=== PATIENT | female | born 1940 | race Caucasian/White ===

== ENCOUNTER → 2019-01-09 | Day surgery (SDC) | payer MEDICARE ==
[~2019-01-09] MED LIST: AMIODARONE HCL200 MG PO; ASPIR 8181 MG PO; AVAPRO150 MG PO; BENADRYL25 M1 PO; CLARITIN-D 241 EACH PO; CLOPIDOGREL75 MG PO; COQ-10100 MG PO; CYMBALTA20 MG PO; CYMBALTA60 MG PO; DILTIAZEM HCL120 MG PO; FENOFIBRATE145 MG PO; FENTANYL CITRATE/PF 100MCG/2 ML INJ ONE; FUROSEMIDE40 MG PO; GLIMEPIRIDE2 MG PO; GLUCOVANCE 5-51 EACH PO; HUMALOG100 UNIT/1 SQ; HYDRALAZINE HCL 20 MG/ML VIAL ONE; HYDROCHLOROTHIA25 MG PO; INSULIN REGULAR, HUMAN 100 UNIT/1 ML 3ML VIAL ONE; INVOCANA PO; LANTUS 3ML100 UNITS/ SQ; LIPITOR40 MG PO; LISINOPRIL5 MG PO; METFORMIN HCL500 MG PO; MIDAZOLAM HCL 2 MG/2 ML VIAL ONE; MULTIVITAMINS1 EAC7 PO; OR PHACO EYE KIT ONE; PLAVIX75 MG PO; POTASSIUM CHLO20 ME1 PO; PREOP PHACO EYE KIT ONE; PREVACID15 M1 PO; ULTRAM50 MG PO; jardiance PO
[2019-01-09 12:45] VITALS: BP 139/90
== END | disposition home or self-care (01) ==
LOC: OR 09:07
PROVIDERS: ATTEND Ophthalmology
DX: H25.11 Age-related nuclear cataract, right eye (principal); I25.810 Atherosclerosis of coronary artery bypass graft(s) without angina pectoris; E78.2 Mixed hyperlipidemia; J44.9 Chronic obstructive pulmonary disease, unspecified; I25.2 Old myocardial infarction; I11.0 Hypertensive heart disease with heart failure; I50.9 Heart failure, unspecified; E11.9 Type 2 diabetes mellitus without complications; K21.9 Gastro-esophageal reflux disease without esophagitis; R06.01 Orthopnea; I48.91 Unspecified atrial fibrillation; D49.519 Neoplasm of unspecified behavior of unspecified kidney; E66.9 Obesity, unspecified; Z88.8 Allergy status to other drugs, medicaments and biological substances; Z79.02 Long term (current) use of antithrombotics/antiplatelets; Z79.82 Long term (current) use of aspirin; Z79.84 Long term (current) use of oral hypoglycemic drugs; Z79.4 Long term (current) use of insulin; Z68.32 Body mass index [BMI] 32.0-32.9, adult; Z95.1 Presence of aortocoronary bypass graft; Z95.5 Presence of coronary angioplasty implant and graft; Z95.810 Presence of automatic (implantable) cardiac defibrillator; Z87.891 Personal history of nicotine dependence
CPT/HCPCS: 36415; 66984; 82948; J0360; J2250; J3010; V2632; J1817

== ENCOUNTER 2019-02-10 13:06 | Inpatient (IN) | payer MEDICARE ==
[~2019-02-10] VITALS: Ht 172.7 cm; Wt 95.3 kg
[~2019-02-10 13:06] MED LIST changes: -FENTANYL CITRATE/PF 100MCG/2 ML INJ ONE; -HYDRALAZINE HCL 20 MG/ML VIAL ONE; -INSULIN REGULAR, HUMAN 100 UNIT/1 ML 3ML VIAL ONE; -MIDAZOLAM HCL 2 MG/2 ML VIAL ONE; -OR PHACO EYE KIT ONE; -PREOP PHACO EYE KIT ONE
--- OUTSIDE RECORDS SUMMARY | 2019-02-10 13:09 | XMS REPORT ---
Author Author [facility] Address Unknown Phone Unavailable Care Team Providers Care Custodial Foreman Name Role Phone Unavailable Unavailable Payers Payer Name Policy Type Policy Number Effective Date Expiration Date Problems This patient has no known problems. Allergies, Adverse Reactions, Alerts Allergy Name Allergy Type Status Severity Reaction(s) Onset Date Inactive Date Treating Clinician Comments Beta-Blockers (Beta-Adrenergic Bloc DA Active SV 2015-09-12 00:00:00 empagliflozin DA Active U 2015-09-12 00:00:00 Medications This patient has no known medications. Results Test Description Test Time Test Comments Text Results Atomic Results Result Comments - CT ABD PELVIS W/O CONT 2019-02-09 08:11:00 Name: KYRIE MAURICIO [facility] : 1940 Age/S: 78 / F [address] [facility] Unit #: [id number] Loc: [place] [address] Phys: Silvana Gutierrez MD Acct: [id number] Dis Date: Status: REG ER PHONE #: [phone] Exam Date: 02/09/2019 0807 FAX #: [phone] Reason: RLQ abd pain EXAMS: CPT CODE: [id number] CT ABD PELVIS W/O CONT 74964 HISTORY: RLQ abd pain TECHNIQUE: 5mm axial CT images were obtained through the abdomen and pelvis without contrast. Sagittal and coronal reformatted images were generated. Automated exposure control for dose reduction. COMPARISON: None FINDINGS: Right lower lobe calcified granuloma. Cardiomegaly. Cardiac pacemaker/ICD. Coronary artery calcification. Cholecystectomy. Hepatomegaly. Atrophic pancreas. Calcified granulomas of the spleen. Normal adrenal glands. Obstructing 6 mm right ureteral calculus at the L4-L5 level. Mild right hydronephrosis and perinephric stranding. 3.4 cm masslike density of the right interpolar renal cortex. Nonenhanced left kidney and collecting system unremarkable. Limited evaluation of the GI tract without oral contrast. Stomach and small bowel are unremarkable. Moderate distal colon diverticulosis. No free air or free fluid. No lymphadenopathy. Aortoiliac atherosclerotic vascular calcification without aneurysm. Partially collapsed urinary bladder is grossly unremarkable. Hysterectomy. No pelvic free fluid. Small fat-containing ventral hernias. Degenerative changes of the spine, sacral iliac joints, and hips. IMPRESSION: Obstructing 6 mm right ureteral calculus at the L4-L5 level. Mild right hydronephrosis and enrique nephric stranding. 3.4 cm masslike density of the right interpolar renal cortex. Recommend contrast enhanced renal MRI. PAGE 1 Signed Report (CONTINUED) Name: KYRIE MAURICIO [facility] : 1940 Age/S: 78 / F [address] [facility] Unit #: [id number] Loc: [facility] [address] Phys: Silvana Gutierrez MD Acct: [id number] Dis Date: Status: REG ER PHONE #: [phone] Exam Date: 02/09/2019 0807 FAX #: [phone] Reason: RLQ abd pain EXAMS: CPT CODE: [id number] CT ABD PELVIS W/O CONT 95081 <Continued> at 0811 Reported and signed by: Anahi Barlow D.O. CC: Silvana Gutierrez MD; Gurjit Dietz Technologist:FREDY OWENS RT(R),CT CTDI: DLP: Trnscb Date/Time: 02/09/2019 (08) [email or web address] Orig Print D/T: S: 02/09/2019 (0815) PAGE 2 Signed Report COMPREHENSIVE METABOLIC PANEL 2019-02-09 07:54:00 SODIUM (test code=NA) 136 mmol/L 136-145 POTASSIUM (test code=K) 4.6 mmol/L 3.5-5.1 CHLORIDE (test code=CL) 95 mmol/L 101-109 CARBON DIOXIDE (test code=CO2) 25.2 mmol/L 21-32 ANION GAP (test code=GAP) 20 mmol/L 10-20 GLUCOSE (test code=GLU) 336 mg/dL 74-106 BLOOD UREA NITROGEN (test code=BUN) 30 mg/dL 3-21 CREATININE (test code=CREAT) 2.37 mg/dL 0.55-1.3 BUN/CREATININE RATIO (test code=BUN/CREA) 12.7 10-20 TOTAL PROTEIN (test code=PROT) 7.9 g/dL 6.5-8.4 ALBUMIN (test code=ALB) 3.8 g/dL 3.4-4.8 GLOBULIN (test code=GLOB) 4.1 G/DL 1-10 ALBUMIN/GLOBULIN RATIO (test code=A/G) 0.93 RATIO 0.75-1.50 CALCIUM (test code=CA) 9.1 mg/dL 8.4-10.2 BILIRUBIN TOTAL (test code=BILT) 0.70 mg/dL 0.0-1.0 SGOT/AST (test code=AST) 21 U/L 6-32 SGPT/ALT (test code=ALT) 20 U/L 12-78 Note: Change in REFERENCE RANGE due to new reagent method. ALKALINE PHOSPHATASE TOTAL (test code=ALKP) 72 U/L 38-126 [id number] 07:54:00* Test Item Value Reference Range Comments LIPASE (test code=LIP) 171 U/L 128-270 COMPREHENSIVE METABOLIC [id number] 07:50:00* Test Item Value Reference Range Comments SODIUM (test code=NA) 136 mmol/L 136-145 POTASSIUM (test code=K) 4.6 mmol/L 3.5-5.1 CHLORIDE (test code=CL) 95 mmol/L 101-109 CARBON DIOXIDE (test code=CO2) 25.2 mmol/L 21-32 ANION GAP (test code=GAP) 20 mmol/L 10-20 GLUCOSE (test code=GLU) 336 mg/dL 74-106 BLOOD UREA NITROGEN (test code=BUN) 30 mg/dL 3-21 CREATININE (test code=CREAT) 2.37 mg/dL 0.55-1.3 BUN/CREATININE RATIO (test code=BUN/CREA) 12.7 10-20 TOTAL PROTEIN (test code=PROT) gram/dL 6.4-8.2 ALBUMIN (test code=ALB) g/dL 3.4-5.0 GLOBULIN (test code=GLOB) g/dL 2.7-4.2 ALBUMIN/GLOBULIN RATIO (test code=A/G) 0.75-1.50 CALCIUM (test code=CA) 9.1 mg/dL 8.4-10.2 BILIRUBIN TOTAL (test code=BILT) mg/dL 0.2-1.2 SGOT/AST (test code=AST) IUnit/L 15-37 SGPT/ALT (test code=ALT) U/L 10-69 ALKALINE PHOSPHATASE TOTAL (test code=ALKP) IUnit/L 45-117 [id number] 07:50:00* Test Item Value Reference Range Comments LIPASE (test code=LIP) Unit/L 144-286 URINALYSIS [id number] 07:45:00* Test Item Value Reference Range Comments UA COLOR (test code=COLU) YELLOW YELLOW UA APPEARANCE (test code=APPU) CLEAR CLEAR UA GLUCOSE DIPSTICK (test code=DGLUU) 1000 (3+) mg/dL NEGATIVE UA BILIRUBIN DIPSTICK (test code=BILU) NEGATIVE mg/dL NEGATIVE UA KETONE DIPSTICK (test code=KETU) 5 (Trace) mg/dL NEGATIVE UA SPECIFIC GRAVITY (test code=SGU) 1.015 1.001-1.035 UA BLOOD DIPSTICK (test code=ALBA) 50 (2+) George/uL NEGATIVE UA PH DIPSTICK (test code=MISAEL) 5.0 5.0-8.0 UA PROTEIN DIPSTICK (test code=PROU) 100 (2+) mg/dL Neg-15 UA UROBILINIOGEN DIPSTICK (test code=URO) norm mg/dL 0.0-0.2 UA NITRITE DIPSTICK (test code=KALA) NEGATIVE NEGATIVE UA LEUKOCYTE ESTERASE DIPSTICK (test code=LEUU) 25 Anne/uL (Trace) uL NEGATIVE UA WBC (test code=WBCU) 0-5 per HPF 0-5 UA RBC (test code=RBCU) 6-10 per HPF 0-5 UA EPITHELIAL CELLS (test code=EPIU) Few (2-5/hpf) per HPF Few UA BACTERIA (test code=BACU) FEW per HPF NONE Urine Source? Clean CatchCBC W/AUTO [id number] 07:38:00* Test Item Value Reference Range Comments WHITE BLOOD CELL (test code=WBC) 19.6 K/mm3 4.5-12.5 RED BLOOD CELL (test code=RBC) 5.64 mill/mm3 3.7-5.2 HEMOGLOBIN (test code=HGB) 12.7 gram/dL 11.5-15.5 HEMATOCRIT (test code=HCT) 41.8 % 36.0-46.0 MEAN CELL VOLUME (test code=MCV) 74.1 fL 80-98 MEAN CELL HGB (test code=MCH) 22.5 picogram 27.0-33.0 MEAN CELL HGB CONCETRATION (test code=MCHC) 30.4 gram/dL 33.0-36.0 RED CELL DISTRIBUTION WIDTH (test code=RDW) 15.9 % 11.6-16.2 RED CELL DISTRIBUTION WIDTH SD (test code=RDW-SD) 42.8 fL 37.0-51.0 PLATELET COUNT (test code=PLT) 555 K/mm3 150-450 MEAN PLATELET VOLUME (test code=MPV) 10.7 fL 6.7-11.0 NEUTROPHIL % (test code=NT%) 85.8 % 39.0-69.0 LYMPHOCYTE % (test code=LY%) 10.4 % 25.0-55.0 MONOCYTE % (test code=MO%) 3.3 % 0.0-10.0 EOSINOPHIL % (test code=EO%) 0.0 % 0.0-5.0 BASOPHIL % (test code=BA%) 0.2 % 0.0-1.0 NEUTROPHIL # (test code=NT#) 16.85 K/mm3 1.8-7.7 LYMPHOCYTE # (test code=LY#) 2.05 K/mm3 1.0-5.0 MONOCYTE # (test code=MO#) 0.65 K/mm3 0-0.8 EOSINOPHIL # (test code=EO#) 0.00 K/mm3 0.0-0.5 BASOPHIL # (test code=BA#) 0.04 K/mm3 0.0-0.2 MANUAL DIFF REQUIRED (test code=MDIFF) NO
--- NOTE | 2019-02-10 13:49 | NUR ---
PATIENT TO ROOM 11
[2019-02-10 13:50] LABS: BASOPHILS # (AUTO) 0.1 (0.0-0.1); BASOPHILS % 0.3 % (0.0-1.0); EOSINOPHILS % 0.2 % (0.0-6.0); HEMATOCRIT 37.6 % (34.2-44.1); HEMOGLOBIN 11.2 g/dL (12.0-16.0); LYMPHOCYTES # (AUTO) 1.7 (1.0-3.2); LYMPHOCYTES % 10.7 % (18.0-39.1); MEAN CORPUSCULAR HEMOGLOBIN 22.4 pg (28-32); MEAN CORPUSCULAR HGB CONC 29.8 g/dL (31-35); MEAN CORPUSCULAR VOLUME 75.4 fL (81-99); MONOCYTES # (AUTO) 0.9 (0.2-0.8); MONOCYTES % 5.2 % (4.4-11.3); NEUTROPHILS # (AUTO) 13.5 (2.1-6.9); NEUTROPHILS % 83.1 % (38.7-80.0); PLATELET COUNT 434 x10e3/uL (140-360); RED BLOOD COUNT 4.99 x10e6/uL (3.6-5.1); RED CELL DISTRIBUTION WIDTH 16.4 % (11.7-14.4)
[2019-02-10 13:51] LABS: BILIRUBIN,URINE NEGATIVE (NEGATIVE); CLARITY,URINE CLEAR (CLEAR); COLOR,URINE YELLOW (YELLOW); KETONES,URINE NEGATIVE (NEGATIVE); LEUKOCYTE ESTERASE ,URINE NEGATIVE (NEGATIVE); NITRITE,URINE NEGATIVE (NEGATIVE); PROTEIN,URINE DIPSTICK TRACE (NEGATIVE); URINE UROBILINOGEN 0.2 mg/dL (0.2 - 1)
[2019-02-10 14:01] LABS: BACTERIA,URINE FEW /HPF; EPITHELIAL CELLS,URINE FEW /LPF; RBC,URINE 0-5 /HPF (0-5); WBC,URINE (MAN) 0-5 /HPF (0-5)
[2019-02-10] MEDS: CEFTRIAXONE SOD 1 GM/NS 50 ML 50 ML IV SCH (14:07)
[2019-02-10 14:13] LABS: ALBUMIN 3.8 g/dL (3.5-5.0); ANION GAP 19.6 mmol/L (8-16); CALCIUM 9.7 mg/dL (8.4-10.2); CREATININE, SERUM 2.6 mg/dL (0.57-1.11); POTASSIUM 4.6 mmol/L (3.5-5.1)
[2019-02-10] MEDS ORDERED: CEFTRIAXONE SOD 1 GM/NS 50 ML 50 ML IV SCH (14:30)
[2019-02-10] MEDS ORDERED: PROPOFOL IV EMULSION 10 MG/ML 20 ML VIAL ONE (14:36)
[2019-02-10] MEDS ORDERED: EPHEDRINE SULFATE INJ 50 MG/10 ML SYR ONE (14:36)
[2019-02-10] MEDS ORDERED: DEXAMETHASONE SOD PHOS INJ 4 MG/ML VIAL ONE (14:36)
[2019-02-10] MEDS ORDERED: LIDOCAINE HCL 2% LOCAL INJ 5 ML SDV VIAL INJ ONE (14:36)
--- NOTE | 2019-02-10 14:50 | Diagnostic Imaging Report ---
CT Abdomen and Pelvis without contrast INDICATION: ^obstructing stone TECHNIQUE: Thin collimation axial images obtained from the diaphragm to the level of the pubic symphysis without nonionic intravenous contrast. Dose reduction techniques used: Automated exposure control, adjustment of the mAs and/or kVp according to patient size, standardized low-dose protocol, and/or iterative reconstruction technique. COMPARISON: Report of CT abdomen/pelvis performed 07/06/2016. ABDOMEN FINDINGS: Lung Bases: Diffuse hyperinflation and trace fibrosis. Small hiatal hernia. Pacer/defibrillator wires are present. Prominent pericardial fat pads. No pericardial or pleural effusions Liver: Normal in attenuation without mass. Gallbladder: Absent. No ductal dilatation. Pancreas: Diffuse fatty atrophy without mass or ductal dilatation. Spleen: Normal in size and contains multiple calcified granulomata. Adrenal Glands: Right adrenal gland is normal. Nodule in the left adrenal gland measures 2.1 x 2.4 cm and contains a punctate calcification. The attenuation is 30 Hounsfield units. By report, this measured 1.7 cm. Nodule in the inferior aspect of the lateral limb measures 9 mm. Again, the attenuation is higher than what would be expected for an adenoma. Kidneys: Right: Edematous with mild perinephric inflammation. Isoattenuating cortical lesion measures 3.4 x 3.1 cm. Mildly hyperattenuating mass in the anterior upper pole measures 1.9 x 2.5 cm. No intrarenal calculi. The collecting system is prominent Left: No renal calculus. No cortical mass or hydronephrosis Lymph Nodes: No enlarged abdominal or perirectal lymph nodes. Aorta: Normal in diameter and diffusely calcified PELVIS FINDINGS: Bowel: Stomach: Normal. Small Bowel: Normal in caliber with normal wall thickness. Large Bowel: Diverticulosis coli. No associated inflammation. There is a lipoma at the ileocecal valve. Appendix: Not visualized and may be absent or collapsed. Bladder: Underdistended but otherwise normal. Ureters: The right ureter is distended throughout its course. Calculus in the distal ureter measures 5 mm. The left ureter is normal. Uterus: Absent. No adnexal mass. Peritoneum/retroperitoneum: No free fluid fluid collection. Bones: Mild to moderate degenerative changes of the spine without compression fracture. No focal osseous lesions. Soft tissues: Fat-containing supraumbilical hernia has an aperture of 2.1 cm. IMPRESSION: 1. Obstructing calculus in the distal right ureter. No intrarenal calculi 2. Isoattenuating and mildly hyperattenuating lesions in the right kidney should be further evaluated with ultrasound to exclude solid mass. 3. Left adrenal mass does not meet the attenuation characteristics of an adenoma. Recommend further characterization with CT dedicated to the adrenal glands. Patient is precluded from MRI due to pacemaker. 4. Diverticulosis coli. No evidence for bowel obstruction or inflammation. Signed by: Dr. Sravani Bhatti MD on 02/10/2019 2:47 PM
[2019-02-10] MEDS: SODIUM CHLORIDE 0.9% 1000ML 1,000 ML IV SCH (14:53)
[2019-02-10] MEDS: ONDANSETRON HCL INJ 2MG/ML 2ML 2 MG/ML VIAL IV PRN ×2 (15:12→20:09)
[2019-02-10] MEDS: MORPHINE SULFATE INJ 4 MG/ML INJ 1ML IV PRN ×2 (15:12→20:09)
--- NOTE | 2019-02-10 15:30 | NUR ---
DR. ARAGON HAS BEEN IN TO EVALUATE PATIENT
--- NOTE | 2019-02-10 17:07 | NUR ---
received pt from ER, pt oriented, pain level is 3. pt has sister at bedside. admission history taken, vital signs taken, full body assessment performed.
[2019-02-10 18:01] VITALS: BP 176/73
--- NOTE | 2019-02-10 18:37 | NUR ---
consent for surgery completed with pt. pt resting in bed, pain tolerable, rated 2-3.
--- NOTE | 2019-02-10 18:42 | NUR ---
pt resting in bed, pain level rated 2, no distress. report given to oncoming shift
--- NOTE | 2019-02-10 19:00 | NUR ---
Received patient from day nurse, patient stable. safety and fall precautions maintained: bed in lowest position and locked, needed items beside bed, call reyes close to patient.
[2019-02-10 19:40] VITALS: BP 160/68
[2019-02-10 21:00] VITALS: BP 160/68
--- NOTE | 2019-02-10 21:06 | History and Physical ---
CHIEF COMPLAINT: Abdominal pain. HISTORY OF PRESENT ILLNESS: Ms. Henry is a 78-year-old female. She presented to the emergency room with complaints of right-sided flank pain that has been going on for last 4 days, progressively getting worse. It is constant, radiating down her groin. It was somewhat relieved with the pain medications, however. It recurred again. [facility]09 and had a CAT scan done, which showed 6 mm right ureteral calculus and she was told to get admitted. However, she is taking care of her aunt, who is 99 years old, so she had to make arrangement and she decided to go home. Today, the pain got worse 10/10 in intensity and severity, radiating to the groin from the right flank. No hematuria. The patient was having some dysuria. Denies any complaints of chest pain, nausea, vomiting, or diarrhea. REVIEW OF SYSTEMS: GENERAL: Denies any fever or chills. HEAD: Denies any head trauma. ENT: Denies any earache. CVS: Denies any chest pain. RESPIRATORY: Denies any shortness of breath. GI: Denies any nausea or vomiting. The rest of the review of systems are negative except as in HPI. PAST MEDICAL HISTORY: Hypertension, diabetes, hyperlipidemia, coronary artery disease. PAST SURGICAL HISTORY: CABG, history of heart attack and the patient underwent tracheostomy, stayed in [place] that was close to a year ago. She had a history of appendectomy, hysterectomy, and cholecystectomy. FAMILY AND SOCIAL HISTORY: She is an ex-smoker, quit 30 years ago, smoked for 40 years. She is taking care of her 99-year-old aunt, who lives with her. She does not work. PHYSICAL EXAMINATION: VITAL SIGNS: Temperature 97.0, pulse of 60, blood pressure 145/55, respiratory rate of 18, and O2 saturation 96%. HEENT: Head is atraumatic and normocephalic. NECK: Supple. CHEST: Clear to auscultation bilaterally. No wheezing. No crackles. HEART: S1 and S2 audible. ABDOMEN: Soft. EXTREMITIES: No pedal edema. NEUROLOGIC: She is awake and alert. No focal neurologic deficit. LABORATORY DATA: White count of 16,000, hemoglobin 11.2, platelets 434. Chemistry is still pending. The patient had this CAT scan, which was done at [facility] showing obstructing 6 mm right ureteral calculus. White count of 19,000 yesterday, hemoglobin was 12,000, platelets 555. Today, the white count is 16,000. Chemistries: Sodium 136, potassium 4.6, BUN 20, creatinine 2.37, that was yesterday. Her last creatinine here is from 2017, which was 1.42. Urinalysis showed evidence of infection as well. Also, she has a history of renal carcinoma on the left kidney, which is being observed with images and no intervention is done. ASSESSMENT/PLAN: Ms. Henry is a 78-year-old female admitted with right flank pain, progressively getting worse. CT yesterday showing evidence of 6 mm ureteral calculus, which is obstructing and showing mild right hydronephrosis as well. 1. Obstructing right ureteral calculus. 2. Mild hydronephrosis. 3. The patient has renal tumor biopsy proven, which is being observed by Dr. Chandrakant Blanco. 4. History of hypertension. 5. Diabetes. 6. Coronary artery disease, history of coronary artery bypass graft in the past. 7. Obesity. 8. Acute kidney injury. PLAN: 1. Case discussed with from the emergency room. Blood cultures will be ordered. 2. Urology consult. 3. Repeat CT abdomen and pelvis. 4. IV antibiotics. 5. We will consider Nephrology evaluation if the patient's creatinine kept on worsening. 6. We will resume home medications. 7. Sliding scale insulin for diabetes mellitus. 8. Case discussed with ER physician. MD HERNANDEZ Roberto/PAUL /[id number]
[2019-02-11] VITALS (8 sets, daily range): BP systolic 145–167; BP diastolic 63–70
--- NOTE | 2019-02-11 02:12 | Consultation ---
DATE OF CONSULTATION: Dr. Chandrakant Blanco dictating a consultation for Dr. Lino. REASON FOR CONSULTATION: A kidney stone. HISTORY: This is a 78-year-old female, who comes to the emergency room complaining of right lower quadrant pain radiating to the right flank that has been going on for about four days and she had developed severe pain, but also nausea and vomiting and has been unable to keep fluids down. The patient by history has had multiple bouts of diverticulosis, diverticulitis, abdominal pain, and abdominal bowel obstruction. She has had multiple surgeries for these as well. The patient also has had open heart surgery with bypass as well as insertion of a pacemaker. 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 She also has had a left adrenal mass-adenoma since then as well. This is the 1st episode of kidney stone. ALLERGIES: BETA-DORITA, LISINOPRIL-ENALAPRIL, AND LOSARTAN. MEDICATIONS: She takes aspirin 81 mg, Plavix 75 mg, diltiazem 120 mg, Cymbalta 20 mg, fenofibrate 145 mg, furosemide 40 mg, insulin Lantus 100 units daily, insulin lispro Humalog 100 units daily, Claritin-D as needed, multivitamins as needed, potassium chloride 20 mEq daily, and Jardiance 10 mg daily. She also takes vitamin D3. PAST SURGICAL HISTORY: Cholecystectomy, heart surgery, hysterectomy, bowel obstruction surgery, hernia surgery. PHYSICAL EXAMINATION: ABDOMEN: The patient has obviously pain, otherwise she has a tympanic abdomen. EXTREMITIES: Legs are normal. DIAGNOSTIC DATA: Right 5-6 mm stone located at L4-L5 with obstruction and a high white count. Also, her creatinine is 2.6, BUN of 49, which accounts for her lack of intake since Tuesday. Her calcium is 9.7, which is slightly elevated, but she has a renal cancer, which tends to elevate the calcium as well. Otherwise, potassium is 4.6, normal. Urinalysis shows 1+ blood. IMPRESSION: Right ureteral calculi 5-6 mm. RECOMMENDATION: I talked to her after seeing the CT scan. I told her that to meet it seems like she has had this problem for some time due to the amount of perinephric stranding present. We discussed her chance of spontaneous passing the stone versus her elevated BUN and creatinine. I felt that treatment is definitely advisable. Since she is on aspirin and Plavix, if we can get by with just placing a double-J now then we can attempt a safer procedure in two weeks after we gain control of her bleeding, particularly since she is on both aspirin and Plavix. Otherwise, I told her that maybe if the case goes well, then we will see that we could possibly do her ureteroscopy tomorrow and get rid of the stone as well. She agrees with this. We will proceed as planned. Chandrakant Blanco MD RRG/MODL /[id number] cc: Gurjit Dietz MD
[2019-02-11] MEDS: MORPHINE SULFATE INJ 4 MG/ML INJ 1ML IV PRN ×2 (06:52→14:55)
--- NOTE | 2019-02-11 07:00 | NUR ---
RCD PT AT BED PT IS ALERT AND ORIENTED PT RESTING ON BED NO SIGNS OF ANY DISTRESS NOTED PT NPO FOR PROCEDURE IV PATENT AND RUNNING 100 ML /HR FAMILY AT BED SIDE BED LOW AND LOCKED CALL LIGHT IN REACH
--- NOTE | 2019-02-11 07:19 | NUR ---
patient endorsed to next shift for continuity of care.
[2019-02-11] MEDS: SODIUM CHLORIDE 0.9% 1000ML 1,000 ML IV SCH ×2 (08:00→17:15)
[2019-02-11] MEDS ORDERED: IOPAMIDOL 300MG/ML 50ML INFUS..BTL IV ONE ×2 (08:38→19:58)
--- NOTE | 2019-02-11 08:40 | NUR ---
pt went to procedure in safe condition
--- NOTE | 2019-02-11 09:31 | NUR ---
PT BACK FROM OR THEY CANCELLED THE PROCEDURE
--- NOTE | 2019-02-11 10:00 | NUR ---
TALKED DR BURT REGARDING CONSULTATION GOT NEW ORDERS
[2019-02-11] MEDS: CIPROFLOXACIN 500 MG TAB PO SCH ×2 (10:30→17:00)
[2019-02-11] MEDS: DULOXETINE HCL 20 MG DELAYED RELEASE PO SCH (11:00)
[2019-02-11] MEDS: POTASSIUM CHLORIDE 20 MEQ TAB CR PO SCH (11:00)
[2019-02-11] MEDS: FUROSEMIDE 40 MG TAB PO SCH (11:00)
[2019-02-11] MEDS: FENOFIBRATE 145 MG TAB PO SCH (11:00)
--- NOTE | 2019-02-11 11:03 | Progress Note ---
DATE: 02/11/2019 Note of cancellation of surgery REASON FOR CANCELLATION: Anesthesiologist did not feel comfortable putting the patient asleep without cardiac clearance. HISTORY: This is a 78-year-old female, well known to me with a long history of medical issues. The patient has had an open heart surgery, bypass surgery. She also has atrial fibrillation. She takes Plavix and aspirin, so she is a high-risk patient. The patient also has a right-sided tumor that we have known by biopsy since 2014, which I have been followed by the office to see if it grows. The patient has declined to have any treatment for that. The patient also has had abdominal obstruction before, treated by Dr. Marcelino Perry, and has had surgery for that as well. The anesthesiologist did not feel comfortable putting her to sleep, particularly if I was going to use laser. I told her that the number one purpose today was to bypass the stone with a stent, so that her BUN and creatinine can improve. Both her BUN and creatinine are abnormal. BUN of 44, creatinine of 2.3 and I felt that if the stone was impacted and I could not pass a guidewire then, I would have to treat her with a laser to be able to put up a stent because on Plavix and aspirin she has a contraindication for doing a percutaneous approach to drain the kidney, particularly on the right side where she has a tumor. I discussed that clearly with the anesthesiologist. She still told me that if I could not guarantee her that I would not use the laser she would be very uncomfortable doing the case and I told her that I could not guarantee 100% that I would have to use the laser on this lady to bypass the stone. With that in mind, I told her that if she feel uncomfortable, we could cancel it and we can consult Dr. Juárez and we can stop the Plavix and wait five days before we did anything, which of course would not be to the best interest of the patient. The patient has a 12% to 14% chance of passing the 6 mm stone she has. Anyway, we will figure the next step out. MD LESLYE Bruner/VÍCTORL /[id number]
[2019-02-11] MEDS: INSULIN LISPRO 100 UNIT/1 ML 3ML VIAL SQ SCH (12:21)
[2019-02-11] MEDS: INSULIN GLARGINE 100 UNITS/ML VIAL SQ SCH (12:22)
[2019-02-11] MEDS: CEFTRIAXONE SOD 1 GM/NS 50 ML 50 ML IV SCH (13:45)
--- NOTE | 2019-02-11 16:00 | NUR ---
CARDIOLOGY IS OK TO DO THE SURGERY PAGED AND NOTIFIED DR RUELAS GOT THE ORDER TO KEEP THE PT NPO AND ANAESTHESIA CONSULTATION
--- NOTE | 2019-02-11 16:00 | NUR ---
PT SHE DIDN'T EAT OR DRINK AFTER LUNCH ( 12 n)
--- NOTE | 2019-02-11 16:10 | NUR ---
NOTIFIED THE GENERAL STORE MANAGER REGARDING THE ANAESTHESIA CONSULTATION SHE IS WORKING FOR THAT
--- NOTE | 2019-02-11 17:20 | NUR ---
AC TO SCIENCE MANAGER PT SCHEDULED FOR SURGERY ON TODAY AT 8 PM NOTIFIED TO THE PATIENT AND FAMILY PT IS ON NPO FOR SURGERY
--- NOTE | 2019-02-11 17:51 | Consultation ---
DATE OF CONSULTATION: 02/11/2019 REASON FOR CONSULTATION: Cardiac clearance. CHIEF COMPLAINT: Right flank pain. HISTORY OF PRESENT ILLNESS: This is a 78-year-old female, well known to practice with history of CAD, status post CABG in 2013, hypertension, diabetes, hyperlipidemia, COPD, reflux, status post ICD in 2015, and right renal cell carcinoma, being followed by Urology. The patient presents to [facility] with complaints of right flank pain. Had a CT scan, which showed a 6 mm right ureter calculus and what she was advised to be admitted. However, the patient went home to make arrangements for her 99-year-old aunt that she is taking care of. The patient returns with right flank pain. Urology on the case and which was to have a procedure, however, Anesthesia is requesting cardiac clearance given patient's cardiac history. The patient denies any chest pains or shortness of breath, any PND, orthopnea, or lower extremity edema. Her main complaint is right flank pain, radiating down to her groin. PAST MEDICAL HISTORY: CAD, status post CABG in 2013, CHF with EF about 25%, hypertension, paroxysmal atrial fibrillation, hyperlipidemia, diabetes, reflux, history of bowel obstruction, COPD/asthma, status post ICD in September 2015. Right renal cell carcinoma and left thigh melanoma. SURGICAL HISTORY: CABG/Maze procedure in May 2013. Status post ICD in September 16, 2015. Hysterectomy, umbilical hernia repair, cholecystectomy, small bowel obstruction, status post exploratory lap. Appendectomy, tonsillectomy, and left carpal tunnel. FAMILY HISTORY: Mother at age 80, history of hypertension, CHF. Father at age of 59, history of NE, status post bypass surgery. SOCIAL HISTORY: She is a . She is retired nurse. She is a former smoker, quit in 1989. Denies alcohol use. ALLERGIES: ACTOS, ALTACE, METOPROLOL, NORVASC, LOSARTAN, ATORVASTATIN, AND SP INHIBITORS. REVIEW OF SYSTEMS: GENERAL: Denies any weight changes, fatigue, weakness, fevers, chills, or night sweats. SKIN: Denies any rashes or sores. HEENT: Positive for nausea. Denies any vomiting. Denies any earaches, vertigo, tendinitis, epistaxis, sore throat, or swollen neck. CARDIAC: Dyspnea on exertion, however, denies any chest pains or palpitations, orthopnea, PND, or lower extremity edema. RESPIRATORY: Denies any shortness of breath, any wheezing, or coughing. GI: Reports good appetite. Positive nausea. No vomiting. Denies any diarrhea, constipation, any melena, or hematochezia. URINARY: Positive for frequency and urgency. Denies any hematuria or dysuria. VASCULAR: Denies any lower extremity edema, claudication. MUSCULOSKELETAL: Positive for generalized joint pains and back pains. NEUROLOGIC: Denies any numbness, tingling, tremors, paralysis, fainting, blackouts, or seizures. HEMATOLOGY: Denies any anemia or easy bruising or bleeding. ENDOCRINE: Denies any heat or cold tolerance, polyuria, polydipsia, or polyphagia. PHYSICAL EXAMINATION: VITAL SIGNS: Height 68 inches, weight 210 pounds, BMI 31.9. Current vital signs are temperature 98.8, pulse 77, respiratory rate 16, blood pressure 144/63, and pulse ox 94% on room air. GENERAL: Appears stated age, reliable informant, in no acute distress. SKIN: No rashes or bruises noted. HEENT: Normocephalic. Pupils are equal and reactive. Extraocular movements intact. Trachea midline. No JVD. No carotid bruit noted. Oral mucosa pink. HEART: Regular rate and rhythm. Soft systolic murmur heard in the right upper sternal border. PMI about 4th and 5th intercostal space, left ICD scar noted at chest wall. LUNGS: Bilateral breath sounds clear to auscultation, decreased throughout, however, no wheezing or rales noted. ABDOMEN: Soft, nontender. However, does have some right-sided flank tenderness to palpation. MUSCULOSKELETAL: Good muscle strength throughout. VASCULAR: +2 bilateral radial pulses, +1 DP, PT pulses bilaterally. Trace lower extremity edema noted. NEUROLOGIC: Cranial nerves II through XII seem intact. LABORATORY DATA: White count 16, hemoglobin 11, hematocrit 37, and platelets 434. Sodium 131, potassium 4.6, chloride 91, BUN 49, creatinine 2.6. CT abdomen and pelvis showing an obstructing calculus in distal right ureter, also showing a left adrenal mass. EKG, showing V-paced rhythm. ASSESSMENT AND PLAN: 1. Obstructed right ureter calculus. 2. Mild hydronephrosis. 3. Acute kidney injury, secondary to above. 4. Left adrenal mass, being monitored by Urology. 5. Hypertension. 6. History of coronary artery disease, status post coronary artery bypass graft in 2013. 7. Status post ICD in 2016. 8. Cardiac clearance requested. PLAN: 1. The patient presents with right flank pain, noted with obstructive ureters calculus and needing cardiac clearance given extensive cardiac history. 2. We will go ahead and clear the patient for procedure, however, risks are zero, given patient's extensive cardiac history, the patient made aware and accepting of risk. 3. Anti-platelet therapy on hold for the time being. 4. We will continue to monitor the patient, continue evaluate the patient, and adjust cardiac therapy as clinical course dictates. Thank you very much for this consult. Dictated by Edmundo Cevallos NP Cynthia Juárez MD DC/PAUL /[id number]
--- NOTE | 2019-02-11 18:40 | NUR ---
PT RESTING ON BED BED SIDE REPORT GIVEN TO ONCOMING NURSE
--- NOTE | 2019-02-11 19:00 | NUR ---
RECEIVED REPORT FROM PREVIOUS NURSE. CALL LIGHT WITHIN REACH. PATIENT IN BED. FRIEND AT BEDSIDE.
--- NOTE | 2019-02-11 19:44 | NUR ---
PATIENT LEFT VIA STRETCHER FOR SURGERY. MARGARITO Mckee CAME TO TAKE THE PATIENT. PATIENT IS A&OX4.
[2019-02-11] MEDS ORDERED: MIDAZOLAM HCL 2 MG/2 ML VIAL ONE (19:55)
[2019-02-11] MEDS ORDERED: FENTANYL CITRATE/PF 100MCG/2 ML INJ ONE (19:55)
[2019-02-11] MEDS ORDERED: ACETAMINOPHEN 1000 MG/100 ML 100 ML IV ONE (22:08)
--- NOTE | 2019-02-11 23:00 | NUR ---
PATIENT ARRIVED TO THE UNIT VIA STRETCHER WITH MARGARITO PARKER. PATIENT IS A&OX3. PATIENT'S FRIEND IS AT THE BEDSIDE.
[2019-02-12] VITALS (8 sets, daily range): BP systolic 132–189; BP diastolic 60–74
[2019-02-12] MEDS: INSULIN GLARGINE 100 UNITS/ML VIAL SQ SCH ×3 (00:17→20:19)
[2019-02-12] MEDS: MORPHINE SULFATE INJ 4 MG/ML INJ 1ML IV PRN ×3 (02:02→15:24)
[2019-02-12] MEDS: SODIUM CHLORIDE 0.9% 1000ML 1,000 ML IV SCH ×3 (03:15→23:15)
--- NOTE | 2019-02-12 07:11 | NUR ---
GAVE REPORT TO ONCOMING NURSE. CALL LIGHT WITHIN REACH. PATIENT IN BED.
[2019-02-12] MEDS: LORATADINE/PSEUDOEPHEDRINE 24 HR SR TAB PO SCH (08:37)
[2019-02-12] MEDS: DILTIAZEM HCL 180 MG CAP ER PO SCH (08:37)
[2019-02-12] MEDS: CIPROFLOXACIN 500 MG TAB PO SCH ×2 (08:37→16:25)
[2019-02-12] MEDS: POTASSIUM CHLORIDE 20 MEQ TAB CR PO SCH (08:38)
[2019-02-12] MEDS: MULTIVITAMINS/MINERALS TAB PO SCH (08:38)
[2019-02-12] MEDS: FENOFIBRATE 145 MG TAB PO SCH (08:38)
[2019-02-12] MEDS: FUROSEMIDE 40 MG TAB PO SCH (08:38)
[2019-02-12] MEDS ORDERED: FUROSEMIDE 40 MG TAB PO SCH (09:00)
[2019-02-12] MEDS: DULOXETINE HCL 20 MG DELAYED RELEASE PO SCH (09:00)
[2019-02-12] MEDS ORDERED: POTASSIUM CHLORIDE 20 MEQ TAB CR PO SCH (09:00)
[2019-02-12] MEDS ORDERED: DULOXETINE HCL 20 MG DELAYED RELEASE PO SCH ×2 (09:00→20:00)
[2019-02-12] MEDS ORDERED: INSULIN LISPRO 100 UNIT/1 ML 3ML VIAL SQ SCH (09:00)
[2019-02-12] MEDS ORDERED: FENOFIBRATE 145 MG TAB PO SCH (09:00)
[2019-02-12 10:09] LABS: BASOPHILS % 0.1 % (0.0-1.0); HEMATOCRIT 34.7 % (34.2-44.1); HEMOGLOBIN 9.9 g/dL (12.0-16.0); LYMPHOCYTES # (AUTO) 0.8 (1.0-3.2); LYMPHOCYTES % 6.5 % (18.0-39.1); MEAN CORPUSCULAR HEMOGLOBIN 22.5 pg (28-32); MEAN CORPUSCULAR HGB CONC 28.5 g/dL (31-35); MEAN CORPUSCULAR VOLUME 78.9 fL (81-99); MONOCYTES # (AUTO) 0.3 (0.2-0.8); MONOCYTES % 2.6 % (4.4-11.3); NEUTROPHILS # (AUTO) 10.9 (2.1-6.9); NEUTROPHILS % 90.3 % (38.7-80.0); PLATELET COUNT 320 x10e3/uL (140-360); RED CELL DISTRIBUTION WIDTH 16.5 % (11.7-14.4)
[2019-02-12 10:44] LABS: ANION GAP 16.8 mmol/L (8-16); CALCIUM 9.3 mg/dL (8.4-10.2); CREATININE, SERUM 1.59 mg/dL (0.57-1.11); POTASSIUM 4.8 mmol/L (3.5-5.1)
[2019-02-12 11:01] LABS: HYPOCHROMASIA SLIGHT; POIKILOCYTOSIS SLIGHT
[2019-02-12 11:02] LABS: ANISOCYTOSIS SLIGHT; HELMET CELLS RARE; MICROCYTOSIS SLIGHT; OVALOCYTES FEW; RBC MORPHOLOGY COMMENT ABNORMAL; TEAR DROP CELLS FEW
[2019-02-12] MEDS: INSULIN LISPRO 100 UNIT/1 ML 3ML VIAL SQ SCH (13:11)
[2019-02-12] MEDS: CEFTRIAXONE SOD 1 GM/NS 50 ML 50 ML IV SCH (14:35)
--- NOTE | 2019-02-12 18:40 | NUR ---
Dr. Blanco was here to see pt and states pt can go in am if okay with other consults and attending. Dr. Juárez here to see pt and states that pt can discharge from his standpoint.
--- NOTE | 2019-02-12 19:05 | NUR ---
Pt visited in room during nursing rounds. Patient alert and oriented x3. S/P Cysto-retrograde pyelogram with double J stent on 02/11/19. Pt refused IVF (NS at 100ml/hr) and pt drinking water sufficiently. Pt denies any discomfort and states ready to go home tomorrow. Pt ambulatory in room prn. Call reyes within reach.
[2019-02-12] MEDS ORDERED: FENTANYL CITRATE/PF 100MCG/2 ML INJ ONE (19:29)
[2019-02-12] MEDS ORDERED: MIDAZOLAM HCL 2 MG/2 ML VIAL ONE (19:29)
[2019-02-12] MEDS ORDERED: ONDANSETRON HCL 4 MG ORAL DISINTEGRATING TAB PO PRN (20:45)
[2019-02-13 05:03] VITALS: BP 143/63
[2019-02-13 05:34] LABS: BASOPHILS % 0.2 % (0.0-1.0); EOSINOPHILS # (AUTO) 0.2 (0.0-0.4); EOSINOPHILS % 2.1 % (0.0-6.0); HEMATOCRIT 33.9 % (34.2-44.1); HEMOGLOBIN 9.7 g/dL (12.0-16.0); LYMPHOCYTES # (AUTO) 2.3 (1.0-3.2); LYMPHOCYTES % 22.5 % (18.0-39.1); MEAN CORPUSCULAR HEMOGLOBIN 22.2 pg (28-32); MEAN CORPUSCULAR HGB CONC 28.6 g/dL (31-35); MEAN CORPUSCULAR VOLUME 77.6 fL (81-99); MONOCYTES # (AUTO) 0.5 (0.2-0.8); MONOCYTES % 5.2 % (4.4-11.3); NEUTROPHILS # (AUTO) 7.1 (2.1-6.9); NEUTROPHILS % 69.5 % (38.7-80.0); PLATELET COUNT 385 x10e3/uL (140-360); RED BLOOD COUNT 4.37 x10e6/uL (3.6-5.1); RED CELL DISTRIBUTION WIDTH 16.8 % (11.7-14.4)
[2019-02-13 05:59] LABS: ANION GAP 12.9 mmol/L (8-16); CALCIUM 9.2 mg/dL (8.4-10.2); CREATININE, SERUM 1.1 mg/dL (0.57-1.11); POTASSIUM 3.9 mmol/L (3.5-5.1)
--- NOTE | 2019-02-13 07:07 | NUR ---
pt alert resp even and unlabored at this time no distress noted, pt able to make needs known, pt has no complaint of pain when asked, pt sitting up at bedside, call light in reach.
[2019-02-13 07:25] LABS: HYPOCHROMASIA SLIGHT; RBC MORPHOLOGY COMMENT ABNORMAL
[2019-02-13 07:32] VITALS: BP 145/65
[2019-02-13 08:25] VITALS: BP 145/65
[2019-02-13] MEDS: CIPROFLOXACIN 500 MG TAB PO SCH (08:30)
[2019-02-13] MEDS: LORATADINE/PSEUDOEPHEDRINE 24 HR SR TAB PO SCH (08:30)
[2019-02-13] MEDS: POTASSIUM CHLORIDE 20 MEQ TAB CR PO SCH (08:31)
[2019-02-13] MEDS: FUROSEMIDE 40 MG TAB PO SCH (08:31)
[2019-02-13] MEDS: MULTIVITAMINS/MINERALS TAB PO SCH (08:31)
[2019-02-13] MEDS: FENOFIBRATE 145 MG TAB PO SCH (08:31)
[2019-02-13] MEDS: SODIUM CHLORIDE 0.9% 1000ML 1,000 ML IV SCH (08:32)
[2019-02-13] MEDS: DILTIAZEM HCL 180 MG CAP ER PO SCH (08:33)
[2019-02-13 11:53] VITALS: BP 137/62
--- NOTE | 2019-02-13 13:45 | NUR ---
pt discharged home, prescriptions given, pt was medications on there medications, iv site removed, no swelling no redness to site.
--- NOTE | 2019-02-13 14:46 | Operative Report ---
DATE OF PROCEDURE: 02/11/2019 SURGEON: Chandrakant Blanco MD PREOPERATIVE DIAGNOSES: Right ureteral calculus with hydronephrosis and intractable pain. POSTOPERATIVE DIAGNOSES: Right ureteral calculus with hydronephrosis and intractable pain. OPERATIONS PERFORMED: Cystoscopy, retrograde pyelogram, stone manipulation, and placement of right double-J. ANESTHESIOLOGIST: Staff. ANESTHESIA: General. FINDINGS: The patient had an impacted stone at the level L4, causing hydronephrosis and intractable pain. This is the 2nd time the patient goes to the emergency room and double-J at this point is indicated, stone size [address] PROCEDURE IN DETAIL: With the patient under satisfactory general anesthesia, the patient was placed in supine position on the operating table. Legs were placed on stirrups. Genitalia was prepped with a pHisoHex solution and draped in usual manner. A #22-Belarusian cystourethroscope was passed per urethra into the bladder. Examination in the bladder reveal that the patient has grade 1 trabeculation. No tumors or stones were seen. The ureteral orifice on the right side was extremely narrow. In fact, on retrograde pyelogram it is noted that the distal ureter appears to be in spasm. The stone is again noted at about L5. At this point, I did retrograde also on the left side, finding no pathological problems. No anatomical distortions of any kind. An open-ended catheter was introduced. A Glidewire was then placed into the ureter, made resistant at the level of L5, and I advanced the open-ended catheter. At that point, I pushed on the stone with the open-end catheter and a guidewire in place until I was able to pass the open-ended catheter by the stone. I advanced the guidewire all the way up to the kidney and then again advanced the open-ended catheter all the way up to the kidney. At that point on fluoroscopy, injecting contrast media I saw a filling defect compatible with a stone that had moved up the ureter all the way up to the proximal ureter near the UPJ. At this point, I would do the guidewire. I noted that the drain from the kidney was quite fast and dark; therefore, I took that urine for culture and send a culture on that urine. Again, over the open-ended catheter, I introduced a guidewire all the way up to the kidney, withdrew the open ended catheter. A 6-Bel[place]ian Kwart and reversal double-J without a string was then placed over the guidewire and pushed all the way up to the kidney forming the double-J in the renal pelvis. I withdrew the guidewire and formed that J in the bladder, and then using the sleeve disengaged the pusher, leaving the double-J in place. At this point, the patient was taken to the recovery room in satisfactory condition. RECOMMENDATION: I recommend the patient stayed in the hospital 24 hours. The anesthesiologist felt very uneasy about putting this patient asleep, requested that we did a Cardiology and Pulmonology clearance, which we obtain; therefore, I believe that the patient should have the full benefit if all of the professionals involve, and stayed 24 hours longer to make sure that from her cardiac standpoint and her pulmonary standpoint she does well, after that she can go home. I will give her some Detrol LA 4 mg as well as some pain medicine, and she has antibiotics at home. We will continue to observe her, follow her, and within next 10 to 12 days she will require a 2nd procedure to remove her stone once we can stop her Plavix and her aspirin to make bleeding less likely. MD LESLYE Bruner/PAUL /[id number]
--- NOTE | 2019-02-14 11:33 | Discharge Summary ---
FINAL DIAGNOSES: 1. Nephrolithiasis. 2. Urinary tract infection. 3. History of coronary artery disease. 4. Abdominal pain. 5. Leukocytosis. ADMISSION HISTORY AND HOSPITAL COURSE: Ms. Chiquita Henry was admitted under my care with complaints of abdominal pain. She was found to have ureteric stone. Dr. Chandrakant Blanco was consulted who is the patient's urologist. The patient was seen by Dr. Blanco, who ordered Cardiology evaluation for preoperative clearance. The patient underwent stent placement, did well. All services cleared the patient to be discharged. She will be discharged to follow up with Dr. Gurjit Dietz. Her leukocytosis has resolved. Creatinine is back to normal. After the stent placement, the patient is doing well. She has ciprofloxacin at home which she will be continuing. She will continue all her home medications. Discharge medication reviewed. MD HERNANDEZ Roberto/PAUL /[id number] cc: Gurjit Dietz MD
== END 2019-02-13 13:29 | disposition home or self-care (01) | DRG 659 ==
LOC: ER 13:06 → ERHOLD 15:55 → MED/SURG2 17:07
PROVIDERS: ADMIT Internal Medicine; ATTEND Internal Medicine
PROC: 0T768DZ Dilation of Right Ureter with Intraluminal Device, Via Natural or Artificial Opening Endoscopic (ICD-10-PCS; 2019-02-11)
PROC: BT1D1ZZ Fluoroscopy of Right Kidney, Ureter and Bladder using Low Osmolar Contrast (ICD-10-PCS; 2019-02-11)
PROC: 0TC68ZZ Extirpation of Matter from Right Ureter, Via Natural or Artificial Opening Endoscopic (ICD-10-PCS; principal; 2019-02-11 21:08)
DX: N20.1 Calculus of ureter (principal); N17.0 Acute kidney failure with tubular necrosis; N39.0 Urinary tract infection, site not specified; I25.10 Atherosclerotic heart disease of native coronary artery without angina pectoris; E11.9 Type 2 diabetes mellitus without complications; Z95.810 Presence of automatic (implantable) cardiac defibrillator; E66.9 Obesity, unspecified; Z68.31 Body mass index [BMI] 31.0-31.9, adult
CPT/HCPCS: 36415; 74176; 74420; 80048; 80053; 81001; 82948; 83605; 85025; 87040; 87086; 93005; 93306; 99284; C2625; J0696; J1100; J1815; J2001; J2250; J2270; J2405; J3010; J7030

== ENCOUNTER 2020-01-10 13:50 | Inpatient (IN) | payer MEDICARE ==
[~2020-01-10] VITALS: Ht 172.7 cm; Wt 95.3 kg
[2020-01-10] MEDS ORDERED: ALBUTEROL/IPRATROPIUM 3 ML NEB NEB ONE (14:15)
[2020-01-10] MEDS ORDERED: METHYLPREDNISOLONE SOD SUCC 125 MG/2ML VIAL IV ONE ×2 (14:15→18:15)
[2020-01-10 14:35] LABS: BASOPHILS # (AUTO) 0.1 (0.0-0.1); BASOPHILS % 0.5 % (0.0-1.0); EOSINOPHILS # (AUTO) 0.3 (0.0-0.4); EOSINOPHILS % 2.3 % (0.0-6.0); HEMATOCRIT 39.9 % (34.2-44.1); HEMOGLOBIN 12.8 g/dL (12.0-16.0); LYMPHOCYTES # (AUTO) 2.1 (1.0-3.2); LYMPHOCYTES % 17.3 % (18.0-39.1); MEAN CORPUSCULAR HEMOGLOBIN 27.7 pg (28-32); MEAN CORPUSCULAR HGB CONC 32.1 g/dL (31-35); MEAN CORPUSCULAR VOLUME 86.4 fL (81-99); MONOCYTES # (AUTO) 0.5 (0.2-0.8); MONOCYTES % 4.3 % (4.4-11.3); NEUTROPHILS # (AUTO) 9.1 (2.1-6.9); NEUTROPHILS % 74.6 % (38.7-80.0); PLATELET COUNT 676 x10e3/uL (140-360); RED BLOOD COUNT 4.62 x10e6/uL (3.6-5.1); RED CELL DISTRIBUTION WIDTH 13.7 % (11.7-14.4)
[2020-01-10 14:55] LABS: ALBUMIN 2.9 g/dL (3.5-5.0); ALBUMIN/GLOBULIN RATIO 0.6 (0.8-2.0); ANION GAP 18.1 mmol/L (8-16); CALCIUM 10.1 mg/dL (8.4-10.2); CREATININE, SERUM 1.15 mg/dL (0.57-1.11); POTASSIUM 4.1 mmol/L (3.5-5.1)
[2020-01-10 15:03] LABS: CREATINE KINASE MB 1.8 ng/mL (0-5.0)
[2020-01-10] MEDS ORDERED: FUROSEMIDE INJ 10 MG/ML 10 ML VIAL IV STA (15:59)
[2020-01-10] MEDS ORDERED: SODIUM CHLORIDE 0.9% 50ML 50 ML ONE (16:47)
[2020-01-10] MEDS ORDERED: IOPAMIDOL 370 MG/ML 200 ML INFUS..BTL INJ ONE (16:47)
[2020-01-10] MEDS ORDERED: FUROSEMIDE INJ 10 MG/ML 10 ML VIAL IV ONE (17:30)
[2020-01-10] MEDS ORDERED: FUROSEMIDE INJ 10 MG/ML 4 ML VIAL IV ONE (18:15)
[2020-01-10 20:00] VITALS: BP 164/61
[2020-01-10 20:36] LABS: ABG HCO3 24 mmol/L (22-26); ABG PCO2 34 mmHg (35-45); ABG PH 7.46 (7.35-7.45); ABG PO2 134 mmHg (80-105); ABG TCO2 25
[2020-01-10 21:37] VITALS: BP 167/61
[2020-01-10 22:00] VITALS: BP 167/61
[2020-01-10] MEDS ORDERED: PROTONIX20 MG PO (23:01)
[2020-01-10 23:11] LABS: CREATINE KINASE MB 1.6 ng/mL (0-5.0)
[2020-01-11] VITALS (7 sets, daily range): BP systolic 131–162; BP diastolic 61–69
[2020-01-11 06:05] LABS: BASOPHILS % 0.3 % (0.0-1.0); EOSINOPHILS % 0.1 % (0.0-6.0); HEMATOCRIT 40.9 % (34.2-44.1); LYMPHOCYTES # (AUTO) 1.4 (1.0-3.2); LYMPHOCYTES % 13.6 % (18.0-39.1); MEAN CORPUSCULAR HEMOGLOBIN 27.1 pg (28-32); MEAN CORPUSCULAR HGB CONC 31.8 g/dL (31-35); MEAN CORPUSCULAR VOLUME 85.4 fL (81-99); MONOCYTES # (AUTO) 0.1 (0.2-0.8); NEUTROPHILS # (AUTO) 8.3 (2.1-6.9); NEUTROPHILS % 83.9 % (38.7-80.0); PLATELET COUNT 648 x10e3/uL (140-360); RED BLOOD COUNT 4.79 x10e6/uL (3.6-5.1); RED CELL DISTRIBUTION WIDTH 13.7 % (11.7-14.4)
[2020-01-11 06:51] LABS: CHOL/HDL RATIO 4.1 (3.0-3.6)
[2020-01-11 06:52] LABS: ALBUMIN 2.7 g/dL (3.5-5.0); ALBUMIN/GLOBULIN RATIO 0.6 (0.8-2.0); ANION GAP 22.9 mmol/L (8-16); CALCIUM 9.9 mg/dL (8.4-10.2); CREATININE, SERUM 1.3 mg/dL (0.57-1.11); POTASSIUM 3.9 mmol/L (3.5-5.1)
[2020-01-11 06:54] LABS: INR 2.3; PROTHROMBIN TIME 26.4 seconds (11.9-14.5)
[2020-01-11 07:10] LABS: THYROID STIMULATING HORMONE 0.358 uIU/mL (0.350-4.940)
[2020-01-11 07:12] LABS: CREATINE KINASE MB 1.9 ng/mL (0-5.0)
[2020-01-11] MEDS ORDERED: DOCUSATE SODIUM 100 MG CAP PO PRN (07:45)
[2020-01-11] MEDS ORDERED: ONDANSETRON HCL INJ 2MG/ML 2ML 2 MG/ML VIAL IV PRN (07:45)
[2020-01-11] MEDS ORDERED: ACETAMINOPHEN 325 MG TAB PO PRN (07:45)
[2020-01-11] MEDS: PANTOPRAZOLE SOD 40 MG TABEC PO SCH (08:00)
[2020-01-11] MEDS ORDERED: DEXTROSE 50% SYRINGE 50 ML IV PRN (08:00)
[2020-01-11] MEDS: AZITHROMYCIN 250MG/NS 100 ML 100 ML IV SCH (08:30)
[2020-01-11] MEDS: INSULIN LISPRO 100 UNIT/1 ML 3ML VIAL SQ SCH ×4 (08:48→21:08)
[2020-01-11] MEDS ORDERED: DILTIAZEM HCL 180 MG CAP ER PO SCH (09:00)
[2020-01-11] MEDS: BENZONATATE 100 MG CAP PO SCH ×3 (09:00→20:52)
[2020-01-11] MEDS ORDERED: ASPIRIN 81 MG CHEW TAB PO SCH (09:00)
[2020-01-11] MEDS ORDERED: INSULIN GLARGINE 100 UNITS/ML VIAL SQ SCH (09:00)
[2020-01-11] MEDS: FENOFIBRATE 160 MG PO SCH (09:00)
[2020-01-11] MEDS: MULTIVITAMINS/MINERALS TAB PO SCH (09:00)
[2020-01-11] MEDS ORDERED: SODIUM CHLORIDE 0.9% 250ML 250 ML ONE (09:46)
[2020-01-11] MEDS: INSULIN GLARGINE 100 UNITS/ML VIAL SQ SCH (13:00)
[2020-01-11] MEDS: WARFARIN SOD 2.5 MG TAB PO SCH (17:00)
[2020-01-11] MEDS: FUROSEMIDE INJ 10 MG/ML 2 ML VIAL IV SCH (17:31)
[2020-01-11] MEDS: DULOXETINE HCL 30 MG DELAYED RELEASE PO SCH (20:52)
[2020-01-12] VITALS (7 sets, daily range): BP systolic 131–168; BP diastolic 66–82
[2020-01-12 05:11] LABS: BASOPHILS % 0.3 % (0.0-1.0); EOSINOPHILS % 0.3 % (0.0-6.0); HEMATOCRIT 41.2 % (34.2-44.1); HEMOGLOBIN 13.2 g/dL (12.0-16.0); LYMPHOCYTES # (AUTO) 2.3 (1.0-3.2); LYMPHOCYTES % 15.2 % (18.0-39.1); MEAN CORPUSCULAR HEMOGLOBIN 27.5 pg (28-32); MEAN CORPUSCULAR VOLUME 85.8 fL (81-99); MONOCYTES # (AUTO) 0.5 (0.2-0.8); MONOCYTES % 3.3 % (4.4-11.3); NEUTROPHILS # (AUTO) 12.1 (2.1-6.9); NEUTROPHILS % 80.2 % (38.7-80.0); PLATELET COUNT 711 x10e3/uL (140-360); RED CELL DISTRIBUTION WIDTH 13.6 % (11.7-14.4)
[2020-01-12 05:25] LABS: INR 2.4; PROTHROMBIN TIME 27.3 seconds (11.9-14.5)
[2020-01-12 05:37] LABS: ALBUMIN 2.5 g/dL (3.5-5.0); ALBUMIN/GLOBULIN RATIO 0.6 (0.8-2.0); CALCIUM 9.5 mg/dL (8.4-10.2); CREATININE, SERUM 1.34 mg/dL (0.57-1.11)
[2020-01-12] MEDS: FUROSEMIDE INJ 10 MG/ML 2 ML VIAL IV SCH (06:11)
[2020-01-12] MEDS: INSULIN LISPRO 100 UNIT/1 ML 3ML VIAL SQ SCH ×4 (07:30→20:18)
[2020-01-12] MEDS: PANTOPRAZOLE SOD 40 MG TABEC PO SCH (07:30)
[2020-01-12] MEDS: AZITHROMYCIN 250MG/NS 100 ML 100 ML IV SCH (08:30)
[2020-01-12] MEDS: DILTIAZEM HCL ER 120 MG CAP PO SCH (08:56)
[2020-01-12] MEDS: BENZONATATE 100 MG CAP PO SCH ×3 (08:57→20:18)
[2020-01-12] MEDS: MULTIVITAMINS/MINERALS TAB PO SCH (08:57)
[2020-01-12] MEDS: FENOFIBRATE 160 MG PO SCH (08:57)
[2020-01-12] MEDS: INSULIN GLARGINE 100 UNITS/ML VIAL SQ SCH (11:55)
[2020-01-12] MEDS ORDERED: ALBUTEROL SULFATE HFA 8GM INHALATION AEROSOL INH PRN ×2 (13:15)
[2020-01-12] MEDS: WARFARIN SOD 2.5 MG TAB PO SCH (17:00)
[2020-01-12] MEDS: FUROSEMIDE 40 MG TAB PO SCH (17:21)
[2020-01-12] MEDS: DULOXETINE HCL 30 MG DELAYED RELEASE PO SCH (20:18)
[2020-01-13] VITALS: BP 146/91
[2020-01-13 04:00] VITALS: BP 166/69
[2020-01-13] MEDS: FUROSEMIDE 40 MG TAB PO SCH (05:47)
[2020-01-13 06:35] LABS: BASOPHILS # (AUTO) 0.1 (0.0-0.1); BASOPHILS % 0.6 % (0.0-1.0); EOSINOPHILS # (AUTO) 0.4 (0.0-0.4); HEMATOCRIT 43.4 % (34.2-44.1); HEMOGLOBIN 13.2 g/dL (12.0-16.0); LYMPHOCYTES % 18.6 % (18.0-39.1); MEAN CORPUSCULAR HEMOGLOBIN 26.7 pg (28-32); MEAN CORPUSCULAR HGB CONC 30.4 g/dL (31-35); MEAN CORPUSCULAR VOLUME 87.9 fL (81-99); MONOCYTES # (AUTO) 0.6 (0.2-0.8); MONOCYTES % 5.1 % (4.4-11.3); NEUTROPHILS # (AUTO) 7.7 (2.1-6.9); NEUTROPHILS % 71.1 % (38.7-80.0); PLATELET COUNT 649 x10e3/uL (140-360); RED BLOOD COUNT 4.94 x10e6/uL (3.6-5.1); RED CELL DISTRIBUTION WIDTH 13.6 % (11.7-14.4)
[2020-01-13] MEDS ORDERED: Insulin Glargine SQ (07:13)
[2020-01-13] MEDS ORDERED: DILTIAZEM 24HR120 M1 PO (07:13)
[2020-01-13] MEDS ORDERED: PROVENTIL HFA6.7 GM INH (07:13)
[2020-01-13] MEDS ORDERED: Warfarin Sod PO (07:13)
[2020-01-13] MEDS ORDERED: ZITHROMAX250 MG PO (07:13)
[2020-01-13] MEDS ORDERED: TESSALON PERLE100 MG PO (07:13)
[2020-01-13 07:16] LABS: ANION GAP 12.5 mmol/L (8-16); CALCIUM 9.5 mg/dL (8.4-10.2); CREATININE, SERUM 0.95 mg/dL (0.57-1.11); POTASSIUM 4.5 mmol/L (3.5-5.1)
[2020-01-13] MEDS: INSULIN LISPRO 100 UNIT/1 ML 3ML VIAL SQ SCH (07:30)
[2020-01-13] MEDS: PANTOPRAZOLE SOD 40 MG TABEC PO SCH (07:30)
[2020-01-13 07:40] VITALS: BP 168/73
[2020-01-13] MEDS: MULTIVITAMINS/MINERALS TAB PO SCH (08:22)
[2020-01-13] MEDS: DILTIAZEM HCL ER 120 MG CAP PO SCH (08:22)
[2020-01-13] MEDS: FENOFIBRATE 160 MG PO SCH (08:22)
[2020-01-13] MEDS: BENZONATATE 100 MG CAP PO SCH (08:22)
[2020-01-13] MEDS: AZITHROMYCIN 250MG/NS 100 ML 100 ML IV SCH (08:22)
[2020-01-13 08:36] VITALS: BP 168/73
== END 2020-01-13 09:42 | disposition home or self-care (01) | DRG 291 ==
LOC: ER 14:10 → ERHOLD 17:48 → MED/SURG2 20:37
PROVIDERS: ADMIT Internal Medicine; ATTEND Internal Medicine
DX: I50.23 Acute on chronic systolic (congestive) heart failure (principal); J96.01 Acute respiratory failure with hypoxia; I13.0 Hypertensive heart and chronic kidney disease with heart failure and stage 1 through stage 4 chronic kidney disease, or unspecified chronic kidney disease; J44.1 Chronic obstructive pulmonary disease with (acute) exacerbation; I43 Cardiomyopathy in diseases classified elsewhere; E11.22 Type 2 diabetes mellitus with diabetic chronic kidney disease; N18.30 Chronic kidney disease, stage 3 unspecified; Z11.59 Encounter for screening for other viral diseases; E66.9 Obesity, unspecified; Z68.31 Body mass index [BMI] 31.0-31.9, adult; Z87.891 Personal history of nicotine dependence; Z99.81 Dependence on supplemental oxygen; I25.10 Atherosclerotic heart disease of native coronary artery without angina pectoris; Z95.1 Presence of aortocoronary bypass graft; Z90.49 Acquired absence of other specified parts of digestive tract; E78.5 Hyperlipidemia, unspecified; Z85.820 Personal history of malignant melanoma of skin; Z85.528 Personal history of other malignant neoplasm of kidney; Z87.01 Personal history of pneumonia (recurrent); Z95.810 Presence of automatic (implantable) cardiac defibrillator; I25.2 Old myocardial infarction; I48.91 Unspecified atrial fibrillation; I27.20 Pulmonary hypertension, unspecified; K21.9 Gastro-esophageal reflux disease without esophagitis; K44.9 Diaphragmatic hernia without obstruction or gangrene
CPT/HCPCS: 36415; 36600; 71045; 71260; 80048; 80053; 80061; 82550; 82553; 82805; 82948; 83036; 83880; 84443; 84484; 85025; 85610; 85651; 86140; 93005; 93306; 94640; 99284; J1940; J2930; J7050; Q9967; U0002

== ENCOUNTER → 2020-05-12 | Outpatient (CLI) | payer MEDICARE ==
[~2020-05-12] MED LIST changes: +DILTIAZEM 24HR120 M1 PO; +Insulin Glargine SQ; +PROTONIX20 MG PO; +PROVENTIL HFA6.7 GM INH; +TESSALON PERLE100 MG PO; +Warfarin Sod PO; +ZITHROMAX250 MG PO
== END ==
LOC: CT 09:50
PROVIDERS: ATTEND Internal Medicine Critical Care Medicine
DX: R06.00 Dyspnea, unspecified (principal); I50.9 Heart failure, unspecified; J44.9 Chronic obstructive pulmonary disease, unspecified; R53.1 Weakness; J30.9 Allergic rhinitis, unspecified; Z68.34 Body mass index [BMI] 34.0-34.9, adult; K21.9 Gastro-esophageal reflux disease without esophagitis; Z93.0 Tracheostomy status; Z87.891 Personal history of nicotine dependence
CPT/HCPCS: 71250

== ENCOUNTER → 2020-06-06 | Outpatient (CLI) | payer MEDICARE | LOC: RESP 11:05 | PROVIDERS: ATTEND Internal Medicine Critical Care Medicine | DX: R06.02 Shortness of breath (principal); J44.9 Chronic obstructive pulmonary disease, unspecified; I50.9 Heart failure, unspecified; J30.9 Allergic rhinitis, unspecified; Z68.34 Body mass index [BMI] 34.0-34.9, adult; R53.1 Weakness; K21.9 Gastro-esophageal reflux disease without esophagitis; Z93.0 Tracheostomy status; Z87.891 Personal history of nicotine dependence | CPT/HCPCS: 94060; 94664; 94727; 94729 ==